=== PATIENT | male | born 1975 | race Caucasian/White ===

== ENCOUNTER 2018-01-11 18:28 | Emergency (ER) | payer OTHER ==
[~2018-01-11] VITALS: Ht 193 cm; Wt 81.7 kg
[~2018-01-11 18:28] MED LIST: IBUPROFEN 600600 M1 PO; METHOCARBAMOL500 M1 PO; PERCOCET 5-3251 EACH PO; PREDNISONE 20 M20 M1 PO; PROAIR HFA8.5 GM INH
[2018-01-11] MEDS ORDERED: BACTRIM DS TAB1 EACH PO (19:09)
[2018-01-11] MEDS ORDERED: KEFLEX500 M1 PO (19:09)
[2018-01-11] MEDS ORDERED: PROAIR HFA8.5 GM INH (19:14)
[2018-01-11 19:22] VITALS: BP 142/78
== END 2018-01-11 19:23 | disposition home or self-care (01) ==
LOC: M.ERS 18:28
DX: L03.113 Cellulitis of right upper limb (principal); J45.909 Unspecified asthma, uncomplicated; F17.200 Nicotine dependence, unspecified, uncomplicated

== ENCOUNTER 2018-01-22 12:38 | Emergency (ER) | payer OTHER ==
[~2018-01-22] VITALS: Ht 203.2 cm; Wt 97.5 kg
[~2018-01-22 12:38] MED LIST changes: +BACTRIM DS TAB1 EACH PO; +KEFLEX500 M1 PO
[2018-01-22] MEDS ORDERED: IBUPROFEN 600600 M1 PO (12:55)
[2018-01-22] MEDS ORDERED: MEDROLDOSEPACK PO (14:14)
[2018-01-22 14:22] VITALS: BP 107/80
== END 2018-01-22 14:24 | disposition home or self-care (01) ==
LOC: M.ERS 12:38
DX: M65.4 Radial styloid tenosynovitis [de Quervain] (principal); J45.909 Unspecified asthma, uncomplicated; F17.210 Nicotine dependence, cigarettes, uncomplicated

== ENCOUNTER 2018-03-10 13:53 | Emergency (ER) | payer OTHER ==
[~2018-03-10] VITALS: Ht 203.2 cm; Wt 97.5 kg
[~2018-03-10 13:53] MED LIST changes: +MEDROLDOSEPACK PO
[2018-03-10 14:30] LABS: ABSOLUTE EOSINOPHILS 0.1 thou/uL (0.0-0.7); ABSOLUTE LYMPHOCYTES 1.5 thou/uL (0.8-5.3); ABSOLUTE MONOCYTES 0.4 thou/uL (0.0-1.2); ABSOLUTE NEUTROPHILS 3.2 thou/uL (1.6-8.1); BASOPHILS 0.8 %; EOSINOPHILS 2.5 %; HEMATOCRIT 44.8 % (42.0-52.0); HEMOGLOBIN 15.2 gm/dL (14.0-18.0); LYMPHOCYTES 28.8 %; MCHC 33.9 g/dL (28.0-37.0); MCV 91.3 fL (80.0-100.0); MONOCYTES 7.3 %; MPV 7.9 fl. (7.2-11.1); NUCLEATED RBCS 0 /100WBC; PLATELET COUNT* 192 thou/uL (150-400); POLYS 60.6 %; RDW-CV 13.6 % (10.5-14.5); WBC 5.3 thou/uL (4.0-11.0)
[2018-03-10 14:40] LABS: CALCIUM 8.7 mg/dL (8.5-10.1); CREATININE 0.8 mg/dL (0.6-1.3); POTASSIUM 3.6 mmol/L (3.5-5.1)
[2018-03-10 14:44] LABS: ALBUMIN 3.5 g/dL (3.4-5.0); TOTAL PROTEIN 7.2 g/dL (6.4-8.2)
[2018-03-10 16:02] VITALS: BP 126/77
== END 2018-03-10 16:03 | disposition left against medical advice (07) ==
LOC: M.ERS 13:53
PROVIDERS: Nurse Practitioner Family
DX: R10.31 Right lower quadrant pain (principal); R10.32 Left lower quadrant pain; J45.909 Unspecified asthma, uncomplicated

== ENCOUNTER 2018-07-11 23:38 | Emergency (ER) | payer OTHER ==
[~2018-07-11] VITALS: Ht 203.2 cm; Wt 113.4 kg
[2018-07-12 00:01] LABS: ABSOLUTE BASOPHILS 0.1 thou/uL (0.0-0.2); ABSOLUTE EOSINOPHILS 0.3 thou/uL (0.0-0.7); ABSOLUTE LYMPHOCYTES 2.5 thou/uL (0.8-5.3); ABSOLUTE MONOCYTES 0.7 thou/uL (0.0-1.2); BASOPHILS 0.8 %; EOSINOPHILS 4.5 %; HEMATOCRIT 43.7 % (42.0-52.0); HEMOGLOBIN 15.1 gm/dL (14.0-18.0); MCH 30.9 pg (26.0-34.0); MCHC 34.5 g/dL (28.0-37.0); MCV 89.4 fL (80.0-100.0); MONOCYTES 8.9 %; MPV 8.1 fl. (7.2-11.1); NUCLEATED RBCS 0 /100WBC; PLATELET COUNT* 199 thou/uL (150-400); POLYS 52.8 %; RBC 4.89 mil/uL (4.50-6.00); RDW-CV 13.6 % (10.5-14.5); WBC 7.5 thou/uL (4.0-11.0)
[2018-07-12 00:19] LABS: ANION GAP 9 mmol/L (7-16); BUN 17 mg/dL (7-18); CALCIUM 8.5 mg/dL (8.5-10.1); CHLORIDE 105 mmol/L (98-107); CO2 27 mmol/L (21-32); CREATININE 0.9 mg/dL (0.6-1.3); GLUCOSE 121 mg/dL (70-99); POTASSIUM 3.6 mmol/L (3.5-5.1); SODIUM 141 mmol/L (136-145)
[2018-07-12 00:21] LABS: PROTIME 10.7 Seconds (9.20-11.50)
[2018-07-12 00:32] LABS: ALBUMIN 3.4 g/dL (3.4-5.0); ALKALINE PHOSPHATASE 117 U/L (46-116); CK-MB MASS 41.4 ng/mL (<0.5-3.6); LIPASE 96 U/L (73-393); MAGNESIUM 1.9 mg/dL (1.8-2.4); NT-PRO BRAIN NAT PEPTIDE 14 pg/mL (<300); SGOT 37 U/L (15-37); SGPT 40 U/L (30-65); TOTAL BILIRUBIN 0.3 mg/dL (<0.1-1.0); TOTAL PROTEIN 6.8 g/dL (6.4-8.2); TROPONIN-I LEVEL <0.06 ng/mL (<0.06)
[2018-07-12 01:33] VITALS: BP 117/65
--- NOTE | 2018-07-12 11:45 | EKG ---
[place] [address] ELECTROCARDIOGRAM REPORT Name: JEREMY RUEDA Room: [facility]#: [id number] Admission: 07/11/18 Attend Phys: Discharge: 07/12/18 Date of : 79 Report #: [id number] THIS REPORT FOR: //name// [facility] ED Test Date: 2018-07-11 Test Time: 23:45:16 Pat Name: JEREMY RUEDA Department: Room: Gender: M Customer Service Operator: Anne PUCKETT : 1975 Requested By: Abiel Maldonado Order Number: [id number] MD: Efe Kovacs Measurements Intervals [place] Rate: 79 P: 64 [place]: 172 QRS: 39 QRSD: 95 T: 57 QT: 372 QTc: 427 Interpretive Statements Sinus rhythm RSR' in V1 or V2, right VCD or RVH ST elev, probable normal early repol pattern Baseline wander in lead(s) V1 Compared to ECG 04/03/2017 08:51:30 no change Electronically Signed On 07-12-2018 11:45:44 FIRE CONTROL OFFICER by Efe Kovacs [email or web address] <ELECTRONICALLY SIGNED> By: Efe Kovacs MD, FACC 07/12/18 [id number] [id number] Efe Kovacs MD, [facility] /EPI
== END 2018-07-12 01:33 | disposition home or self-care (01) ==
LOC: M.ERS 23:38
PROVIDERS: Family Medicine
DX: R07.89 Other chest pain (principal); R06.02 Shortness of breath; J45.909 Unspecified asthma, uncomplicated

== ENCOUNTER 2018-08-04 08:15 | Emergency (ER) | payer OTHER ==
[~2018-08-04] VITALS: Ht 203.2 cm; Wt 97.5 kg
[2018-08-04] MEDS ORDERED: CENTANY30 GM TOP (08:53)
[2018-08-04] MEDS ORDERED: BACTRIM DS TAB1 EACH PO (08:53)
[2018-08-04 09:09] VITALS: BP 132/79
== END 2018-08-04 09:13 | disposition home or self-care (01) ==
LOC: M.ERS 08:15
DX: L72.3 Sebaceous cyst (principal); F17.200 Nicotine dependence, unspecified, uncomplicated; J45.909 Unspecified asthma, uncomplicated

== ENCOUNTER 2018-11-02 05:09 | Emergency (ER) | payer OTHER ==
[~2018-11-02] VITALS: Ht 203.2 cm; Wt 97.5 kg
[~2018-11-02 05:09] MED LIST changes: +CENTANY30 GM TOP
[2018-11-02 05:42] LABS: URINE BILIRUBIN NEGATIVE (Negative); URINE BLOOD TRACE (Negative); URINE CLARITY CLEAR; URINE COLOR YELLOW; URINE GLUCOSE-RANDOM NEGATIVE (Negative); URINE KETONES NEGATIVE (Negative); URINE LEUKOCYTES-REFLEX NEGATIVE (Negative); URINE NITRITE-REFLEX NEGATIVE (Negative); URINE PROTEIN NEGATIVE (Negative)
[2018-11-02 05:49] LABS: AMP/METHAMP POSITIVE (Negative); BARBITURATES Negative (Negative); BENZODIAZEPINES Negative (Negative); COCAINE Negative (Negative); METHADONE Negative (Negative); OPIATES Negative (Negative); PCP Negative (Negative); THC POSITIVE (Negative)
[2018-11-02 05:54] LABS: ABSOLUTE BASOPHILS 0.1 thou/uL (0.0-0.2); ABSOLUTE EOSINOPHILS 0.1 thou/uL (0.0-0.7); ABSOLUTE LYMPHOCYTES 1.9 thou/uL (0.8-5.3); ABSOLUTE MONOCYTES 0.9 thou/uL (0.0-1.2); ABSOLUTE NEUTROPHILS 8.5 thou/uL (1.6-8.1); BASOPHILS 0.6 %; EOSINOPHILS 0.7 %; HEMOGLOBIN 15.3 gm/dL (14.0-18.0); LYMPHOCYTES 16.5 %; MCHC 33.9 g/dL (28.0-37.0); MCV 88.5 fL (80.0-100.0); MONOCYTES 7.7 %; MPV 8.3 fl. (7.2-11.1); NUCLEATED RBCS 0 /100WBC; PLATELET COUNT* 215 thou/uL (150-400); POLYS 74.5 %; RBC 5.08 mil/uL (4.50-6.00); RDW-CV 13.7 % (10.5-14.5); WBC 11.4 thou/uL (4.0-11.0)
[2018-11-02] MEDS ORDERED: NOHOMEMEDICATIONS (05:55)
[2018-11-02 06:09] LABS: ALBUMIN 3.6 g/dL (3.4-5.0); ALCOHOL < 10 mg/dL (<10); CALCIUM 8.5 mg/dL (8.5-10.1); POTASSIUM 3.8 mmol/L (3.5-5.1); SALICYLATE < 2.8 mg/dL (2.8-20.0); TOTAL BILIRUBIN 0.5 mg/dL (<0.1-1.0); TOTAL PROTEIN 7.3 g/dL (6.4-8.2)
[2018-11-02 06:10] LABS: ACETAMINOPHEN < 2 ug/mL (10-30)
[2018-11-02 09:30] VITALS: BP 102/92
== END 2018-11-02 09:30 ==
LOC: M.ERS 05:09
PROVIDERS: Emergency Medicine
DX: F32.9 Major depressive disorder, single episode, unspecified (principal); R45.851 Suicidal ideations

== ENCOUNTER 2019-03-01 04:34 | Emergency (ER) | payer OTHER ==
[~2019-03-01] VITALS: Ht 203.2 cm; Wt 97.5 kg
[~2019-03-01 04:34] MED LIST changes: +NOHOMEMEDICATIONS
[2019-03-01 05:04] LABS: ABSOLUTE BASOPHILS 0.1 thou/uL (0.0-0.2); ABSOLUTE EOSINOPHILS 0.5 thou/uL (0.0-0.7); ABSOLUTE LYMPHOCYTES 2.8 thou/uL (0.8-5.3); ABSOLUTE MONOCYTES 0.6 thou/uL (0.0-1.2); ABSOLUTE NEUTROPHILS 3.3 thou/uL (1.6-8.1); BASOPHILS 0.8 %; EOSINOPHILS 6.7 %; HEMATOCRIT 46.2 % (42.0-52.0); HEMOGLOBIN 15.7 gm/dL (14.0-18.0); LYMPHOCYTES 38.7 %; MCH 30.4 pg (26.0-34.0); MCV 89.4 fL (80.0-100.0); MONOCYTES 8.4 %; MPV 8.5 fl. (7.2-11.1); NUCLEATED RBCS 0 /100WBC; PLATELET COUNT* 239 thou/uL (150-400); POLYS 45.4 %; RBC 5.17 mil/uL (4.50-6.00); RDW-CV 14.2 % (10.5-14.5); WBC 7.3 thou/uL (4.0-11.0)
[2019-03-01 05:13] LABS: ANION GAP 7 mmol/L (7-16); BUN 17 mg/dL (7-18); CALCIUM 8.9 mg/dL (8.5-10.1); CHLORIDE 104 mmol/L (98-107); CO2 32 mmol/L (21-32); CREATININE 0.9 mg/dL (0.6-1.3); GLUCOSE 92 mg/dL (70-99); POTASSIUM 4.2 mmol/L (3.5-5.1); SODIUM 143 mmol/L (136-145)
[2019-03-01 05:14] LABS: PROTIME 10.4 Seconds (9.20-11.50)
[2019-03-01 05:28] LABS: ALBUMIN 3.6 g/dL (3.4-5.0); ALKALINE PHOSPHATASE 109 U/L (46-116); CK-MB MASS 50.6 ng/mL (<0.5-3.6); LIPASE 119 U/L (73-393); MAGNESIUM 2.3 mg/dL (1.8-2.4); NT-PRO BRAIN NAT PEPTIDE 33 pg/mL (<300); SGOT 35 U/L (15-37); SGPT 46 U/L (30-65); TOTAL BILIRUBIN 0.2 mg/dL (<0.1-1.0); TOTAL PROTEIN 7.2 g/dL (6.4-8.2); TROPONIN-I LEVEL <0.06 ng/mL (<0.06)
[2019-03-01 05:34] VITALS: BP 133/82
--- NOTE | 2019-03-01 11:01 | EKG ---
[place] [address] ELECTROCARDIOGRAM REPORT Name: JEREMY RUEDA Room: [facility]#: [id number] Admission: 03/01/19 Attend Phys: Discharge: 03/01/19 Date of : 79 Report #: [id number] THIS REPORT FOR: //name// [facility] ED Test Date: 2019-03-01 Test Time: 04:38:58 Pat Name: JEREMY RUEDA Department: Room: Gender: M [employer]: [place] : 1975 Requested By: Abiel Maldonado Order Number: [id number] MD: Kirk Adams Measurements Intervals [place] Rate: 54 P: 52 NE: 170 QRS: 47 QRSD: 102 T: 59 QT: 419 QTc: 398 Interpretive Statements Sinus rhythm RSR' in V1 or V2, probably normal variant ST elev, probable normal early repol pattern Compared to ECG 07/11/2018 23:45:16 Right ventricular hypertrophy no longer present ST (T wave) deviation still present Electronically Signed On 03-01-2019 11:01:27 CDT by Kirk Adams [email or web address] <ELECTRONICALLY SIGNED> By: Kirk Adams MD, FACC 03/01/19 1101 [id number] [id number] Kirk Adams MD, [facility] /EPI
== END 2019-03-01 05:35 | disposition home or self-care (01) ==
LOC: M.ERS 04:34
PROVIDERS: Family Medicine
DX: R07.89 Other chest pain (principal); J45.909 Unspecified asthma, uncomplicated; F32.9 Major depressive disorder, single episode, unspecified; F17.210 Nicotine dependence, cigarettes, uncomplicated

== ENCOUNTER 2019-05-27 14:20 | Emergency (ER) | payer OTHER ==
[~2019-05-27] VITALS: Ht 203.2 cm; Wt 91.2 kg
[2019-05-27 14:57] LABS: ABSOLUTE BASOPHILS 0.1 thou/uL (0.0-0.2); ABSOLUTE EOSINOPHILS 0.2 thou/uL (0.0-0.7); ABSOLUTE LYMPHOCYTES 2.1 thou/uL (0.8-5.3); ABSOLUTE MONOCYTES 0.6 thou/uL (0.0-1.2); ABSOLUTE NEUTROPHILS 6.3 thou/uL (1.6-8.1); BASOPHILS 0.9 %; EOSINOPHILS 2.3 %; HEMATOCRIT 46.2 % (42.0-52.0); HEMOGLOBIN 16.2 gm/dL (14.0-18.0); LYMPHOCYTES 22.5 %; MCH 30.8 pg (26.0-34.0); MCHC 35.1 g/dL (28.0-37.0); MCV 87.8 fL (80.0-100.0); MONOCYTES 6.1 %; MPV 8.7 fl. (7.2-11.1); NUCLEATED RBCS 0 /100WBC; PLATELET COUNT* 265 thou/uL (150-400); POLYS 68.2 %; RBC 5.26 mil/uL (4.50-6.00); RDW-CV 13.5 % (10.5-14.5); WBC 9.3 thou/uL (4.0-11.0)
[2019-05-27 15:04] LABS: CALCIUM 9.3 mg/dL (8.5-10.1); CREATININE 0.9 mg/dL (0.6-1.3); POTASSIUM 3.7 mmol/L (3.5-5.1)
[2019-05-27 15:09] LABS: ALBUMIN 3.8 g/dL (3.4-5.0); SALICYLATE < 2.8 mg/dL (2.8-20.0); TOTAL BILIRUBIN 0.5 mg/dL (<0.1-1.0); TOTAL PROTEIN 7.7 g/dL (6.4-8.2)
[2019-05-27 15:10] LABS: ACETAMINOPHEN < 2 ug/mL (10-30); ALCOHOL < 10 mg/dL (<10)
[2019-05-27 15:56] LABS: URINE BILIRUBIN NEGATIVE (Negative); URINE BLOOD NEGATIVE (Negative); URINE CLARITY CLEAR; URINE COLOR YELLOW; URINE GLUCOSE-RANDOM NEGATIVE (Negative); URINE KETONES NEGATIVE (Negative); URINE LEUKOCYTES-REFLEX TRACE (Negative); URINE NITRITE-REFLEX NEGATIVE (Negative); URINE PROTEIN NEGATIVE (Negative); URINE SPECIFIC GRAVITY <= 1.005 (1.005-1.030); URINE UROBILINOGEN 0.2 E.U./dl (0.2-1.0)
[2019-05-27 16:01] LABS: BACTERIA-REFLEX None Seen /HPF (None Seen); CASTS None Seen /LPF (None Seen); CRYSTALS None Seen /LPF (None Seen); SQUAMOUS 0-3 Few /LPF (0-3); URINE RBC None Seen /HPF (0-2); URINE WBC-REFLEX 0-5 Rare /HPF (0-5)
[2019-05-27 16:05] LABS: AMP/METHAMP POSITIVE (Negative); BARBITURATES Negative (Negative); BENZODIAZEPINES Negative (Negative); COCAINE Negative (Negative); METHADONE Negative (Negative); OPIATES Negative (Negative); PCP Negative (Negative); THC POSITIVE (Negative)
[2019-05-27 20:06] VITALS: BP 118/78
== END 2019-05-27 20:08 | disposition home or self-care (01) ==
LOC: M.ERS 14:20
PROVIDERS: Emergency Medicine Emergency Medical Services
DX: F32.9 Major depressive disorder, single episode, unspecified (principal); J45.909 Unspecified asthma, uncomplicated; F17.210 Nicotine dependence, cigarettes, uncomplicated

== ENCOUNTER 2019-12-02 15:15 | Emergency (ER) | payer OTHER ==
[~2019-12-02] VITALS: Ht 203.2 cm; Wt 115.7 kg
[2019-12-02 15:48] LABS: INFLUENZA A ANTIGEN Negative (Negative); INFLUENZA B ANTIGEN Negative (Negative)
[2019-12-02] MEDS ORDERED: AMOXICILLIN 50500 MG PO (16:02)
[2019-12-02] MEDS ORDERED: TRAMADOL 50 MG50 MG PO (16:02)
[2019-12-02 16:18] VITALS: BP 149/88
== END 2019-12-02 16:19 | disposition home or self-care (01) ==
LOC: M.ERS 15:15
PROVIDERS: Nurse Practitioner Family
DX: J02.9 Acute pharyngitis, unspecified (principal); J45.909 Unspecified asthma, uncomplicated; F32.9 Major depressive disorder, single episode, unspecified; F17.210 Nicotine dependence, cigarettes, uncomplicated